=== PATIENT | female | born 1950 ===

== ENCOUNTER 2017-01-15 16:21 | Emergency (ER) | payer OTHER ==
[2017-01-15 16:33] VITALS: TEMP 97.6
[2017-01-15] MEDS ORDERED: ONDANSETRON HCL 4 MG/2 ML SOL IV ONE (16:52)
[2017-01-15] MEDS ORDERED: HYDROMORPHONE HCL 2 MG/ML SOL IV ONE (16:53)
[2017-01-15] MEDS ORDERED: SODIUM CHLORIDE 0.9% 1000 ML SOL IV SCH (17:00)
[2017-01-15] MEDS ORDERED: HYDROMORPHONE 1 MG/ML SYRINGE ONE (17:06)
[2017-01-15] MEDS ORDERED: ONDANSETRON HCL 4 MG/2 ML SOL ONE (17:07)
[2017-01-15 17:52] LABS: BASOPHILS % (AUTO) 2 % (0-3); EOSINOPHILS % (AUTO) 1 % (0-9); HEMATOCRIT 36 % (35-47); MEAN CORPUSCULAR HGB CONC 34.4 gm/dl (32.0-36.0); MEAN CORPUSCULAR VOLUME 87 fL (81-99); MONOCYTES % (AUTO) 8.1 % (0-12); NEUTROPHILS % (AUTO) 61.5 % (37-80)
[2017-01-15 18:06] LABS: APPEARANCE,URINE CLEAR; BILIRUBIN,URINE NEGATIVE (NEGATIVE); COLOR,URINE YELLOW; GLUCOSE, URINE (UA) NEGATIVE (NEGATIVE); KETONES,URINE NEGATIVE (NEGATIVE); NITRATE,URINE NEGATIVE (NEGATIVE); OCCULT BLOOD,URINE NEGATIVE (NEG-TRACE)
[2017-01-15 18:07] LABS: LEUKOCYTE ESTERASE ,URINE NEGATIVE (NEGATIVE); RBC,URINE 0-2 (0-3AV/HPF); UROBILINOGEN,URINE NORMAL (0.2-1.0 EU); WBC,URINE 0-2 (0-5AV/HPF)
[2017-01-15 18:12] LABS: ALBUMIN 3.7 gm/dl (3.4-5.0); ALT 25 IU/L (14-63); CALCIUM 8.4 mg/dl (8.5-10.1); GLOM FILT RATE 73 mL/min (>60); POTASSIUM 3.9 mMol/L (3.5-5.1); SODIUM 138 mMol/L (136-145)
[2017-01-15 19:15] VITALS: RESP 20
[2017-01-15 19:17] VITALS: BP 163/88; PULSE 88; O2SAT 96
== END 2017-01-15 19:04 | disposition home or self-care (01) ==
LOC: ED 16:21
DX: K43.9 Ventral hernia without obstruction or gangrene (principal)
CPT/HCPCS: 99285 ×3; 80053; 81001; 82009; 82150; 83690; 85025; J1170; J2405; Q9967; 74177

== ENCOUNTER 2017-02-02 10:09 | Outpatient (CLI) | payer OTHER ==
[2017-01-15 19:17] VITALS: O2SAT 96
== END 2017-02-02 10:10 | disposition home or self-care (01) ==
LOC: CONVCARE 10:09
PROVIDERS: ATTEND Orthopaedic Surgery
DX: M25.562 Pain in left knee (principal); M25.862 Other specified joint disorders, left knee
CPT/HCPCS: 73564; 73723; A9575

== ENCOUNTER 2017-04-13 12:16 | Emergency (ER) | payer OTHER ==
[2017-04-13] MEDS ORDERED: INSULIN HUMAN REGULAR 100 U/ML SOL SC ONE ×2 (12:40→13:08)
[2017-04-13] MEDS ORDERED: ONDANSETRON HCL 4 MG/2 ML SOL IV ONE (12:45)
[2017-04-13] MEDS ORDERED: SODIUM CHLORIDE 0.9% 1000ML 1,000 ML IV SCH (12:45)
[2017-04-13] MEDS ORDERED: INSULIN HUMAN REGULAR 100 U/ML SOL ONE ×2 (12:47→13:16)
[2017-04-13 12:55] LABS: BASOPHILS % (AUTO) 1 % (0-3); EOSINOPHILS % (AUTO) 0 % (0-9); HEMATOCRIT 38 % (35-47); MEAN CORPUSCULAR HGB CONC 32.4 gm/dl (32.0-36.0); MEAN CORPUSCULAR VOLUME 92 fL (81-99); MONOCYTES % (AUTO) 7.5 % (0-12); NEUTROPHILS % (AUTO) 76.3 % (37-80)
[2017-04-13] MEDS ORDERED: KETOROLAC TROMETHAMINE 30 MG/ML SOL IV ONE (13:16)
[2017-04-13 13:19] LABS: ALBUMIN 3.2 gm/dl (3.4-5.0); ALT 31 IU/L (14-63); CALCIUM 8.6 mg/dl (8.5-10.1); GLOM FILT RATE 36 mL/min (>60); POTASSIUM 3.7 mMol/L (3.5-5.1); SODIUM 134 mMol/L (136-145)
[2017-04-13] MEDS ORDERED: KETOROLAC TROMETHAMINE 30 MG/ML SOL ONE (13:21)
[2017-04-13 13:50] VITALS: RESP 20
[2017-04-13 15:11] LABS: COLOR,URINE YELLOW
[2017-04-13 15:12] LABS: APPEARANCE,URINE SL CLOUDY; BILIRUBIN,URINE 3+ (NEGATIVE); GLUCOSE, URINE (UA) 2+ (NEGATIVE); KETONES,URINE 4+ (NEGATIVE); LEUKOCYTE ESTERASE ,URINE NEGATIVE (NEGATIVE); NITRATE,URINE NEGATIVE (NEGATIVE); OCCULT BLOOD,URINE NEGATIVE (NEG-TRACE); UROBILINOGEN,URINE NORMAL (0.2-1.0 EU)
[2017-04-13 15:13] LABS: ICTOTEST,URINE NEGATIVE (NEGATIVE); RBC,URINE NEG (0-3AV/HPF)
[2017-04-13 15:27] VITALS: BP 103/67; PULSE 95; TEMP 99.4; O2SAT 100
== END 2017-04-13 14:31 | disposition home or self-care (01) ==
LOC: ED 12:16
DX: E11.65 Type 2 diabetes mellitus with hyperglycemia (principal); R07.9 Chest pain, unspecified; M54.9 Dorsalgia, unspecified; R11.0 Nausea; R42 Dizziness and giddiness; Z79.4 Long term (current) use of insulin
CPT/HCPCS: 36415; 71010; 80053; 81001; 82009; 82800; 82962; 84484; 85025; 93005; 96365; 96372; 96374; 99284; 99285; J1815; J1885

== ENCOUNTER 2017-11-24 09:01 | Outpatient (CLI) | payer OTHER ==
[2017-04-13 15:27] VITALS: O2SAT 100
== END 2017-11-24 09:02 | disposition home or self-care (01) ==
LOC: CONVCARE 09:01
PROVIDERS: ATTEND Orthopaedic Surgery
DX: M17.11 Unilateral primary osteoarthritis, right knee (principal)
CPT/HCPCS: 73564

== ENCOUNTER 2018-02-08 14:22 | Outpatient (CLI) | payer OTHER ==
[2017-04-13 15:27] VITALS: O2SAT 100
[2018-02-08 15:09] LABS: CREATININE 0.7 mg/dl (0.60-1.00)
== END 2018-02-08 14:23 | disposition home or self-care (01) ==
LOC: CONVCARE 14:22
PROVIDERS: ATTEND Orthopaedic Surgery
DX: D17.21 Benign lipomatous neoplasm of skin and subcutaneous tissue of right arm (principal)
CPT/HCPCS: 36415; 73060; 82565

== ENCOUNTER 2018-03-04 12:18 | Emergency (ER) | payer OTHER ==
[2018-03-04 13:07] VITALS: TEMP 98.8
[2018-03-04 13:15] LABS: BLOOD UREA NITROGEN 43 mg/dl (7-18); CALCIUM 8.4 mg/dl (8.5-10.1); CARBON DIOXIDE 13.1 mEq/L (21-32); CHLORIDE 79 mMol/L (98-107); CREATININE 2.54 mg/dl (0.60-1.00); POTASSIUM 4.3 mMol/L (3.5-5.1)
[2018-03-04] MEDS ORDERED: SODIUM CHLORIDE 0.9% 1000ML 1,000 ML IV SCH (13:15)
[2018-03-04 13:19] LABS: GLUCOSE 1141 mg/dl (74-106)
[2018-03-04 13:22] LABS: BASOPHILS % (AUTO) 0 % (0-3); EOSINOPHILS % (AUTO) 0 % (0-9); HEMATOCRIT 38 % (35-47); HEMOGLOBIN 11.7 gm/dl (12.0-15.5); LYMPHOCYTES % (AUTO) 5.3 % (10-50); MEAN CORPUSCULAR HEMOGLOBIN 28.9 pg (27.0-32.0); MEAN CORPUSCULAR HGB CONC 30.6 gm/dl (32.0-36.0); MEAN CORPUSCULAR VOLUME 94 fL (81-99); NEUTROPHILS % (AUTO) 87.3 % (37-80)
[2018-03-04 13:29] LABS: SODIUM 118 mMol/L (136-145)
[2018-03-04] MEDS ORDERED: INSULIN HUMAN REGULAR 500 U in SODIUM CHLORIDE 0.9% 500 ML 500 ML IV SCH (14:00)
[2018-03-04] MEDS ORDERED: INSULIN HUMAN REGULAR 100 U/ML SOL ONE (14:03)
[2018-03-04 14:05] LABS: ABG PH 7.35 (7.35-7.45)
[2018-03-04 15:21] LABS: LACTIC ACID 5.4 mMol/L (0.0-2.0)
[2018-03-04] MEDS ORDERED: ERTAPENEM SODIUM 1 GM PDS ONE (15:23)
[2018-03-04] MEDS ORDERED: ONDANSETRON HCL 4 MG/2 ML SOL IV ONE (15:24)
[2018-03-04] MEDS ORDERED: ONDANSETRON HCL 4 MG/2 ML SOL ONE (15:25)
[2018-03-04] MEDS ORDERED: ERTAPENEM SODIUM 1 GM PDS 1 GM in SODIUM CHLORIDE 0.9% 50 ML 50 ML IV SCH (15:25)
[2018-03-04 15:27] LABS: BLOOD UREA NITROGEN 43 mg/dl (7-18); CALCIUM 8.3 mg/dl (8.5-10.1); CHLORIDE 85 mMol/L (98-107); CREATININE 2.39 mg/dl (0.60-1.00); POTASSIUM 3.9 mMol/L (3.5-5.1)
[2018-03-04 15:36] LABS: GLUCOSE 858 mg/dl (74-106); SODIUM 123 mMol/L (136-145)
[2018-03-04 15:45] LABS: APPEARANCE,URINE CLEAR; COLOR,URINE YELLOW; GLUCOSE, URINE (UA) 2+ (NEGATIVE); KETONES,URINE 1+ (NEGATIVE); PH,URINE 520
[2018-03-04 15:46] LABS: BACTERIA NEGATIVE (< 1+); BILIRUBIN,URINE 1+ (NEGATIVE); CRYSTALS NEGATIVE (0-3 AVE/HPF); ICTOTEST,URINE NEGATIVE (NEGATIVE); LEUKOCYTE ESTERASE ,URINE NEGATIVE (NEGATIVE); NITRATE,URINE NEGATIVE (NEGATIVE); OCCULT BLOOD,URINE NEGATIVE (NEG-TRACE); RBC,URINE NEG (0-3AV/HPF); UROBILINOGEN,URINE NORMAL (0.2-1.0 EU); WBC,URINE 0-3 (0-5AV/HPF)
[2018-03-04 17:24] VITALS: BP 88/51; PULSE 95; RESP 18; O2SAT 90
[2018-03-05] MEDS ORDERED: ERTAPENEM SODIUM 1 GM PDS 1 GM in SODIUM CHLORIDE 0.9% 50 ML 50 ML IV SCH (09:00)
== END 2018-03-04 15:30 | disposition short-term general hospital (02) ==
LOC: ED 12:18
DX: E11.10 Type 2 diabetes mellitus with ketoacidosis without coma (principal); E11.65 Type 2 diabetes mellitus with hyperglycemia; Z79.4 Long term (current) use of insulin; R11.2 Nausea with vomiting, unspecified
CPT/HCPCS: 36415; 36600; 71045; 80048; 81001; 82009; 82803; 82962; 83735; 84100; 85025; 93005; 96365; 96366; 96374; 99285; 99291; J1335; J1815; J2405

== ENCOUNTER 2018-07-26 18:27 | Emergency (ER) | payer BC, MEDICARE, OTHER ==
[2018-07-26 18:56] VITALS: RESP 16; TEMP 97.4; O2SAT 100
[2018-07-26 19:03] LABS: BASOPHILS % (AUTO) 1 % (0-3); EOSINOPHILS % (AUTO) 1 % (0-9); HEMATOCRIT 39 % (35-47); HEMOGLOBIN 12.7 gm/dl (12.0-15.5); LYMPHOCYTES % (AUTO) 30.7 % (10-50); MEAN CORPUSCULAR HEMOGLOBIN 28.4 pg (27.0-32.0); MEAN CORPUSCULAR HGB CONC 32.3 gm/dl (32.0-36.0); MEAN CORPUSCULAR VOLUME 88 fL (81-99); MONOCYTES % (AUTO) 6.6 % (0-12); NEUTROPHILS % (AUTO) 60.8 % (37-80)
[2018-07-26 19:13] LABS: APPEARANCE,URINE Clear; BILIRUBIN,URINE NEGATIVE (NEGATIVE); COLOR,URINE Yellow; GLUCOSE, URINE (UA) NEGATIVE (NEGATIVE); KETONES,URINE NEGATIVE (NEGATIVE); LEUKOCYTE ESTERASE ,URINE NEGATIVE (NEGATIVE); NITRATE,URINE NEGATIVE (NEGATIVE); OCCULT BLOOD,URINE NEGATIVE (NEG-TRACE); UROBILINOGEN,URINE 0.2 (0.2-1.0 EU)
[2018-07-26 19:22] LABS: ALBUMIN 3.6 gm/dl (3.4-5.0); BILIRUBIN,TOTAL 0.3 mg/dl (0.2-1.0); CALCIUM 8.6 mg/dl (8.5-10.1); CARBON DIOXIDE 27.5 mEq/L (21-32); POTASSIUM 4.1 mMol/L (3.5-5.1); TOTAL PROTEIN 7.8 gm/dl (6.4-8.2)
[2018-07-26 19:23] LABS: CREATININE 0.71 mg/dl (0.60-1.00)
[2018-07-26 19:46] LABS: BACTERIA NEGATIVE (< 1+); CRYSTALS NEGATIVE (0-3 AVE/HPF); RBC,URINE 0-1 (0-3AV/HPF); WBC,URINE 0-1 (0-5AV/HPF)
[2018-07-26] MEDS ORDERED: PANTOPRAZOLE SODIUM 40 MG ECT PO ONE ×2 (20:10→20:21)
[2018-07-26] MEDS ORDERED: ALUMINUM/MAGNESIUM 30 ML SUS PO ONE (20:11)
[2018-07-26] MEDS ORDERED: ALUMINUM/MAGNESIUM 30 ML SUS ONE (20:21)
[2018-07-26 20:31] VITALS: BP 180/93; PULSE 78
== END 2018-07-26 20:28 | disposition home or self-care (01) ==
LOC: ED 18:27
DX: K29.70 Gastritis, unspecified, without bleeding (principal); E11.9 Type 2 diabetes mellitus without complications; I10 Essential (primary) hypertension
CPT/HCPCS: 36415; 74177; 80053; 81001; 82150; 85025; 99283; Q9967; A9270-GY

== ENCOUNTER 2018-11-26 13:39 | Observation (INO) | payer OTHER, MEDICARE ==
[2018-11-26] MEDS ORDERED: SODIUM CHLORIDE 0.9% 1000ML 1,000 ML IV ONE (14:00)
[2018-11-26] MEDS ORDERED: SODIUM CHLORIDE 0.9% FLUSH 10 ML SOL IV PRN (14:02)
[2018-11-26 14:15] LABS: APPEARANCE,URINE Clear; BILIRUBIN,URINE NEGATIVE (NEGATIVE); COLOR,URINE Yellow; GLUCOSE, URINE (UA) 2+ (NEGATIVE); KETONES,URINE 3+ (NEGATIVE); LEUKOCYTE ESTERASE ,URINE NEGATIVE (NEGATIVE); NITRATE,URINE NEGATIVE (NEGATIVE); OCCULT BLOOD,URINE NEGATIVE (NEG-TRACE); UROBILINOGEN,URINE 0.2 (0.2-1.0 EU)
[2018-11-26 14:18] LABS: CALCIUM 8.9 mg/dl (8.5-10.1); CARBON DIOXIDE 21.8 mEq/L (21-32); CREATININE 1.45 mg/dl (0.60-1.00); MAGNESIUM 1.8 mg/dl (1.8-2.4)
[2018-11-26] MEDS ORDERED: INSULIN HUMAN REGULAR 100 U/ML SOL ONE (14:32)
[2018-11-26] MEDS: INSULIN HUMAN REGULAR 100 U/ML SOL SUBCUT PRN ×2 (14:32→16:10)
[2018-11-26 14:38] LABS: BACTERIA 1+ (< 1+); CRYSTALS NEGATIVE (0-3 AVE/HPF); EPITHELIAL CELLS 0-1 (SQUAMOUS); RBC,URINE NEG (0-3AV/HPF); WBC,URINE 0-1 (0-5AV/HPF)
[2018-11-26 15:08] LABS: BASOPHILS % (AUTO) 0 % (0-3); EOSINOPHILS % (AUTO) 1 % (0-9); HEMATOCRIT 42 % (35-47); HEMOGLOBIN 13.8 gm/dl (12.0-15.5); LYMPHOCYTES % (AUTO) 11.9 % (10-50); MEAN CORPUSCULAR HGB CONC 33.2 gm/dl (32.0-36.0); MEAN CORPUSCULAR VOLUME 90 fL (81-99); MONOCYTES % (AUTO) 4.4 % (0-12); NEUTROPHILS % (AUTO) 82.5 % (37-80)
[2018-11-26] MEDS ORDERED: INSULIN HUMAN REGULAR 100 U/ML SOL SUBCUT PRN (16:08)
[2018-11-26] MEDS: SODIUM CHLORIDE 0.9% 1000ML 1,000 ML IV SCH ×2 (16:15→18:49)
[2018-11-26 17:12] LABS: CALCIUM 8.3 mg/dl (8.5-10.1); CARBON DIOXIDE 28.3 mEq/L (21-32); CREATININE 1.02 mg/dl (0.60-1.00)
[2018-11-26] MEDS ORDERED: SODIUM CHLORIDE IV ONE (17:35)
[2018-11-26] MEDS ORDERED: POTASSIUM CHLORIDE IV ONE (17:35)
[2018-11-26] MEDS ORDERED: ENOXAPARIN 100 MG SOL SC SCH (17:45)
[2018-11-26] MEDS ORDERED: ADALIMUMAB 40 MG SQ SCH (18:00)
[2018-11-26] MEDS ORDERED: DEXTROSE/SALINE 0.45% 1,000 ML IV SCH (18:00)
[2018-11-26] MEDS ORDERED: SODIUM CHLORIDE 0.9% 1000ML 1,000 ML IV SCH (18:00)
[2018-11-26] MEDS ORDERED: INSULIN HUMAN REGULAR 100 U/ML SOL SC ONE (18:10)
[2018-11-26] MEDS: NOVOLOG FLEXPEN SC SCH ×2 (18:26→20:06)
[2018-11-26] MEDS ORDERED: POTASSIUM CHLORIDE 2 MEQ/ML SOL IV ONE (18:39)
[2018-11-26 20:35] LABS: CALCIUM 7.8 mg/dl (8.5-10.1); CARBON DIOXIDE 24.8 mEq/L (21-32); CREATININE 1.01 mg/dl (0.60-1.00)
[2018-11-26] MEDS ORDERED: LEVEMIR PEN SC SCH (21:00)
[2018-11-26] MEDS: TEMAZEPAM 15MG 15 MG CAP PO PRN (22:38)
[2018-11-26] MEDS: SODIUM CHLORIDE/KCL 20MEQ 1,000 ML IV SCH (22:44)
[2018-11-27] MEDS: TEMAZEPAM 15MG 15 MG CAP PO PRN (00:28)
[2018-11-27] MEDS: SODIUM CHLORIDE/KCL 20MEQ 1,000 ML IV SCH (05:23)
[2018-11-27 05:29] VITALS: O2SAT 98
[2018-11-27 07:25] LABS: CALCIUM 7.9 mg/dl (8.5-10.1); CARBON DIOXIDE 24.3 mEq/L (21-32); CHOL/HDL RATIO 2.8 (2.2-4.5); CREATININE 0.54 mg/dl (0.60-1.00); LDL CHOLESTEROL,CALCULATED 71.8 mg/dl (50-130); LDL/HDL RATIO 1.5 (1.1-3.1); MAGNESIUM 1.7 mg/dl (1.8-2.4)
[2018-11-27] MEDS: NOVOLOG FLEXPEN SC SCH ×2 (08:38→11:14)
[2018-11-27 10:03] VITALS: BP 181/75; PULSE 79; RESP 18; TEMP 97.5
[2018-11-27] MEDS ORDERED: NOVOLOG 70/30 FLEXPEN SC ONE (12:16)
== END 2018-11-27 13:55 | disposition home or self-care (01) ==
LOC: ED 13:39 → ACUTE CARE 17:23
PROVIDERS: ADMIT Family Medicine; ATTEND Family Medicine
DX: E87.1 Hypo-osmolality and hyponatremia (principal); E11.10 Type 2 diabetes mellitus with ketoacidosis without coma; Z79.4 Long term (current) use of insulin
CPT/HCPCS: 36415; 80048; 80061; 81001; 82009; 82962; 83036; 83735; 84100; 85025; 96365; 96366; 96372; 99218; 99284; J1650; J1815; J3480; A9270-GY